=== PATIENT | female | born 1985 | race Caucasian/White ===

== ENCOUNTER → 2016-08-23 | Outpatient (REF) | payer OTHER | LOC: M SFHCWAGY 14:52 | PROVIDERS: ATTEND Nurse Practitioner Family | DX: Z01.419 Encounter for gynecological examination (general) (routine) without abnormal findings (principal) ==

== ENCOUNTER → 2020-03-25 | Outpatient (REF) | payer SELFPAY | LOC: M SFHCWAGY 17:12 | PROVIDERS: ATTEND Nurse Practitioner Family | DX: Z12.4 Encounter for screening for malignant neoplasm of cervix (principal); R87.610 Atypical squamous cells of undetermined significance on cytologic smear of cervix (ASC-US) ==

== ENCOUNTER → 2020-04-19 | Outpatient (REF) | payer SELFPAY | LOC: M SFHCWAGY 13:26 | PROVIDERS: ATTEND Nurse Practitioner Women's Health | DX: R87.610 Atypical squamous cells of undetermined significance on cytologic smear of cervix (ASC-US) (principal); R87.810 Cervical high risk human papillomavirus (HPV) DNA test positive ==

== ENCOUNTER → 2021-01-11 | Outpatient (REF) | payer SELFPAY | LOC: M SFHCWAGY 16:54 | PROVIDERS: ATTEND Advanced Practice Midwife | DX: Z3A.00 Weeks of gestation of pregnancy not specified (principal) ==

== ENCOUNTER → 2021-02-08 | Outpatient (CLI) | payer MEDICAID ==
--- NOTE | 2021-02-08 14:40 | REP ---
INDICATION: DATING. COMPARISON: None. TECHNIQUE: Real-time sonographic evaluation of the gravid uterus performed. FINDINGS: Estimated gestational age is17 weeks 5 days, EDC 07/14/2021. Presentation: Variable Placenta anterior, grade 0, without evidence of placenta previa. heart rate is recorded at 152 beats per minute. Amniotic fluid is subjectively normal. Closed cervical length is measured at 3.6 cm. Biometry chart: BPD: 38 mm, 17 weeks 5 days, 47th percentile. HC: 147 mm, 17 weeks 6 days, 53rd percentile AC: 118 mm, 17 weeks 4 days, 45th percentile Femur length: 25 mm, 17 weeks 4 days, 44th percentile HC to AC ratio: 1.24, normal range 1.08-1.27. Estimated weight: 201g, 35th percentile. IMPRESSION: Viable single intrauterine gestation as above. <Electronically signed by Constantine Crocker > 02/08/21 [id number]
== END ==
LOC: M WHC 12:55
PROVIDERS: ATTEND Advanced Practice Midwife
DX: Z36.9 Encounter for antenatal screening, unspecified (principal); Z3A.17 17 weeks gestation of pregnancy

== ENCOUNTER → 2021-02-08 | Outpatient (CLI) | payer MEDICAID ==
[2021-02-09 07:52] LABS: ALT/SGPT 19 U/L (12-78); BILIRUBIN,TOTAL 0.7 MG/DL (0.2-1.0); CREATININE FOR GFR 0.76 MG/DL (0.55-1.30); GLOMERULAR FILTRATION RATE > 60.0 (>60); GLUCOSE CHALLENGE TEST 1 HOUR 104 MG/DL (LESS THAN 140); LDH LACTATE DEHYDROGENASE 146 U/L (84-246); URIC ACID 4.4 MG/DL (2.6-6.0)
[2021-02-09 07:55] LABS: HEMATOCRIT 40.1 % (36.0-47.0); HEMOGLOBIN 13.3 g/dl (12.0-15.5); MEAN CORPUSCULAR HEMOGLOBIN 30.4 pg (27.0-33.0); MEAN CORPUSCULAR HGB CONC 33.2 g/dl (32.0-36.5); MEAN CORPUSCULAR VOLUME 91.6 fl (80.0-96.0); PLATELET COUNT, AUTOMATED 214 10^3/uL (150-450); RED BLOOD COUNT 4.38 10^6/uL (4.00-5.40); WHITE BLOOD COUNT 11.3 10^3/uL (4.0-10.0)
[2021-02-09 09:59] LABS: HIV 1&2 SCREEN CENTAUR NEGATIVE (NEGATIVE)
[2021-02-09 10:26] LABS: HEMOGLOBIN A1c 4.9 %
== END ==
LOC: M PLALAB 13:45
PROVIDERS: ATTEND Advanced Practice Midwife
DX: Z34.82 Encounter for supervision of other normal pregnancy, second trimester (principal)

== ENCOUNTER → 2021-03-04 | Outpatient (CLI) | payer OTHER ==
--- NOTE | 2021-03-04 08:16 | REP ---
INDICATION: ANATOMY COMPARISON: 02/08/2021 TECHNIQUE: Transabdominal obstetrical ultrasound with color Doppler evaluation. FINDINGS: Examination demonstrates a single live intrauterine in variable presentation. motion is identified by technologist. Placenta is noted anterior and grade 0 without evidence for placenta previa or abruption. Amniotic fluid volume is normal. Cervix measures 3.8 cm in length and appears closed.. Selected gestational age: 21 weeks 2 days with GUILLAUME 07/13/2021. Gestational age by current measurements 21 weeks 2 days with GUILLAUME 07/13/2021. FHR equals 161 beats per minute. BPD: 5.0 cm at 21 weeks 2 days HC: 19.0 cm at 21 weeks 2 days AC: 16.5 cm at 21 weeks 4 days FL: 3.5 cm at 21 weeks 1 day HL: 3.4 cm at 21 weeks 4 days HC/AC: 1.15 Estimated weight 416 grams (44thpercentile). Anatomical assessment demonstrates normal structures including cranium, choroid plexus, cavum, cerebellum/posterior fossa, facial features, lungs, ventricular outflow tracts, diaphragm, stomach, cord insertion/three-vessel cord, kidneys/bladder, and extremities. Limited evaluation of the facial profile, four-chamber heart, and spine due to positioning. IMPRESSION: Single live intrauterine in variable presentation demonstrating appropriate estimated weight based on selected age. Anatomical limitations as noted above may warrant re-evaluation and follow-up. <Electronically signed by Momo Quinteros > 03/04/21 [id number]
== END ==
LOC: M WHC 07:14
PROVIDERS: ATTEND Obstetrics & Gynecology
DX: O99.212 Obesity complicating pregnancy, second trimester (principal); Z3A.16 16 weeks gestation of pregnancy

== ENCOUNTER → 2021-03-30 | Outpatient (CLI) | payer OTHER, MEDICAID ==
--- NOTE | 2021-03-30 11:46 | REP ---
INDICATION: F/U ANATOMY. COMPARISON: 03/04/2021. TECHNIQUE: Real-time sonographic evaluation of the gravid uterus performed. FINDINGS: Estimated gestational age is25 weeks 0 days, EDC 07/13/2021. Today's measurements indicate appropriate growth. Presentation: Breech Placenta anterior, grade 2, without evidence of placenta previa. heart rate is recorded at 132 beats per minute. Amniotic fluid is subjectively normal.. Closed cervical length is measured at 4.8 cm. Biometry chart: BPD: 63 mm, 25 weeks 4 days, 60th percentile. HC: 234 mm, 25 weeks 3 days, 59th percentile AC: 207 mm, 25 weeks 2 days, 55th percentile Femur length: 48 mm, 25 weeks 6 days, 68th percentile HC to AC ratio: 1.13, normal range 1.01-1.20. Estimated weight: 823g, 62nd percentile. The facial structures and four-chamber heart are visualized and are grossly unremarkable. Portions of the spine are visualized and are grossly unremarkable, but the lumbosacral spine not well visualized or evaluated. IMPRESSION: Viable single intrauterine gestation as above. <Electronically signed by Constantine Crocker > 03/30/21 [id number]
== END ==
LOC: M WHC 07:00
PROVIDERS: ATTEND Advanced Practice Midwife
DX: Z36.89 Encounter for other specified antenatal screening (principal); Z3A.21 21 weeks gestation of pregnancy

== ENCOUNTER → 2021-04-29 | Outpatient (CLI) | payer OTHER, MEDICAID ==
--- NOTE | 2021-04-30 17:07 | REP ---
INDICATION: F/U ANATOMY COMPARISON: 03/30/2021 TECHNIQUE: Transabdominal obstetrical ultrasound with color Doppler evaluation. FINDINGS: Examination demonstrates a single live intrauterine in variable presentation. motion is identified by technologist. Placenta is noted anterior and grade 2 without evidence for placenta previa or abruption. Amniotic fluid volume is normal. Cervix measures 3.9 cm in length and appears closed.. Selected gestational age: 29 weeks 2 days with GUILLAUME 07/13/2021. Gestational age by current measurements 29 weeks 2 days with GUILLAUME is 07/13/2021. FHR equals 144 beats per minute. Estimated weight 1316 grams (26percentile). Anatomical assessment demonstrates normal structures including spine. IMPRESSION: Single live intrauterine in variable presentation demonstrating appropriate estimated weight and growth. In conjunction with prior examination anatomical assessment is complete and normal. <Electronically signed by Momo Quinteros > 04/30/21 [id number]
== END ==
LOC: M WHC 10:54
PROVIDERS: ATTEND Specialist
DX: Z34.02 Encounter for supervision of normal first pregnancy, second trimester (principal); Z3A.29 29 weeks gestation of pregnancy

== ENCOUNTER → 2021-04-29 | Outpatient (CLI) | payer OTHER ==
[2021-04-29 13:37] LABS: HEMOGLOBIN 12.9 g/dl (12.0-15.5); MEAN CORPUSCULAR HEMOGLOBIN 31.4 pg (27.0-33.0); MEAN CORPUSCULAR HGB CONC 33.1 g/dl (32.0-36.5); MEAN CORPUSCULAR VOLUME 94.9 fl (80.0-96.0); PLATELET COUNT, AUTOMATED 221 10^3/uL (150-450); RED BLOOD COUNT 4.11 10^6/uL (4.00-5.40); WHITE BLOOD COUNT 9.6 10^3/uL (4.0-10.0)
[2021-04-29 15:08] LABS: GC DNA AMPLIFICATION NEGATIVE (NEGATIVE)
== END ==
LOC: M PLALAB 10:46
PROVIDERS: ATTEND Specialist
DX: Z34.02 Encounter for supervision of normal first pregnancy, second trimester (principal); Z3A.00 Weeks of gestation of pregnancy not specified

== ENCOUNTER → 2021-06-14 | Outpatient (CLI) | payer OTHER, MEDICAID | LOC: M WHC 14:07 | PROVIDERS: ATTEND Obstetrics & Gynecology | DX: O26.843 Uterine size-date discrepancy, third trimester (principal); Z36.9 Encounter for antenatal screening, unspecified; Z3A.35 35 weeks gestation of pregnancy ==

== ENCOUNTER → 2021-06-27 | Outpatient (REF) | payer OTHER, MEDICAID | LOC: M PLALAB 14:24 | PROVIDERS: ATTEND Obstetrics & Gynecology | DX: Z36.89 Encounter for other specified antenatal screening (principal); Z3A.37 37 weeks gestation of pregnancy ==

== ENCOUNTER 2021-07-18 21:39 | Inpatient (IN) | payer OTHER, MEDICAID ==
[~2021-07-18] VITALS: Ht 167.6 cm; Wt 123.9 kg
[2021-07-18 22:00] VITALS: BP 134/85
[2021-07-18] MEDS ORDERED: PRENTAB9 PO (22:06)
[2021-07-18] MEDS ORDERED: HOME MED LIST COMPLETE! XX SCH (22:10)
[2021-07-18 23:12] LABS: HEMOGLOBIN 13.9 g/dl (12.0-15.5); MEAN CORPUSCULAR HEMOGLOBIN 31.6 pg (27.0-33.0); MEAN CORPUSCULAR HGB CONC 34.8 g/dl (32.0-36.5); MEAN CORPUSCULAR VOLUME 90.9 fl (80.0-96.0); PLATELET COUNT, AUTOMATED 219 10^3/uL (150-450); WHITE BLOOD COUNT 11.5 10^3/uL (4.0-10.0)
[2021-07-19] VITALS (41 sets, daily range): BP systolic 103–178; BP diastolic 58–105
[2021-07-19] MEDS ORDERED: FENTANYL 2MCG/ML ROPIVACAINE 0.2% IN 0.9% NACL 100ML IVBAG As Ordered ONE (01:01)
[2021-07-19] MEDS: FENTANYL/ROPIVACAINE/NACL BAG 100 ML EPIDURAL SCH ×2 (01:35→10:17)
[2021-07-19] MEDS ORDERED: diphenhydrAMINE 50MG/ML VIAL (J1200) IV PRN (03:20)
[2021-07-19] MEDS ORDERED: REFRIGERATOR IV KEYS XX PRN (03:20)
[2021-07-19] MEDS ORDERED: ePHEDrine SULFATE 25 MG/5 ML(5MG/ML) SYRINGE IV PRN (03:20)
[2021-07-19] MEDS ORDERED: NALOXONE INJ 0.4MG/1ML VIAL (J2310 PER 1MG) IV PRN (03:20)
[2021-07-19] MEDS ORDERED: LACTATED RINGER'S 1000 ML IV PRN (03:20)
[2021-07-19] MEDS ORDERED: EPIDURAL/PCA KEYS XX PRN (03:20)
[2021-07-19] MEDS ORDERED: EPIDURAL COMMENT XX SCH (03:20)
[2021-07-19] MEDS ORDERED: ONDANSETRON 4MG/2ML VIAL IV PRN (03:20)
[2021-07-19] MEDS: OXYTOCIN DRIP 30 UNITS in IV 1 EA IV SCH ×2 (07:17→15:16)
[2021-07-19] MEDS ORDERED: LR 1,000 ML IV SCH (12:10)
[2021-07-19] MEDS ORDERED: MEASLES,MUMPS,RUBELLA VACCINE INJ (MMR-II) (90707) SC SCH (16:05)
[2021-07-19] MEDS ORDERED: DOCUSATE SODIUM 100MG CAPSULE PO PRN (16:05)
[2021-07-19] MEDS ORDERED: ACETAMINOPHEN TAB 650MG DOSE (2X325MG) PO PRN (16:05)
[2021-07-19] MEDS ORDERED: RHOGAM 300 MCG (1500 IU) INJ (J2790) IM SCH (16:05)
[2021-07-19] MEDS ORDERED: IBUPROFEN 600MG TAB PO PRN (16:05)
[2021-07-19] MEDS ORDERED: OXYTOCIN DRIP 30 UNITS in IV 1 EA IV ONE (16:05)
[2021-07-19] MEDS ORDERED: ACETAMINOPHEN 500 MG TAB PO PRN (16:05)
[2021-07-19] MEDS ORDERED: IBUPROFEN 800 MG TAB PO PRN (16:05)
[2021-07-19] MEDS ORDERED: DIBUCAINE 1% OINTMENT 30GM TOP PRN (16:05)
[2021-07-19] MEDS ORDERED: METHYLERGONOVINE MALEATE 0.2 MG TAB PO PRN (16:05)
[2021-07-20 06:00] VITALS: BP 124/84
[2021-07-20] MEDS: PRENATAL VITAMINS CHEWABLE TABLET PO SCH (10:02)
[2021-07-20 18:00] VITALS: BP 145/79
[2021-07-21 06:07] VITALS: BP 143/88
[2021-07-21] MEDS: PRENATAL VITAMINS CHEWABLE TABLET PO SCH (08:22)
== END 2021-07-21 10:50 | disposition home or self-care (01) | DRG 560 ==
LOC: M LDO 21:39 → M LDI 22:17 → M OBS 07-19 17:10
PROVIDERS: ADMIT Specialist; ATTEND Specialist
PROC: 10E0XZZ Delivery of Products of Conception, External Approach (ICD-10-PCS; principal; 2021-07-19)
PROC: 0KQM0ZZ Repair Perineum Muscle, Open Approach (ICD-10-PCS; 2021-07-19)
PROC: 10907ZC Drainage of Amniotic Fluid, Therapeutic from Products of Conception, Via Natural or Artificial Opening (ICD-10-PCS; 2021-07-19)
DX: O48.0 Post-term pregnancy (principal); O72.1 Other immediate postpartum hemorrhage; Z3A.40 40 weeks gestation of pregnancy; O69.81X0 Labor and delivery complicated by cord around neck, without compression, not applicable or unspecified; O70.1 Second degree perineal laceration during delivery; Z37.0 Single live birth

== ENCOUNTER → 2023-04-02 | Outpatient (REF) | payer OTHER, MEDICAID ==
[~2023-04-02] MED LIST: PRENTAB9 PO
== END ==
LOC: M SFHCWAGY 17:44
PROVIDERS: ATTEND Specialist
DX: Z01.419 Encounter for gynecological examination (general) (routine) without abnormal findings (principal)

== ENCOUNTER → 2024-07-23 | Outpatient (CLI) | payer OTHER | LOC: M WUC 12:01 | PROVIDERS: ATTEND Student in an Organized Health Care Education/Training Program | DX: M19.072 Primary osteoarthritis, left ankle and foot (principal) ==

== ENCOUNTER → 2024-09-03 | Outpatient (REF) | payer OTHER | LOC: M SFHCWAGY 15:19 | PROVIDERS: ATTEND Specialist | DX: Z12.4 Encounter for screening for malignant neoplasm of cervix (principal) ==